=== PATIENT | male | born 1950 | race Caucasian/White ===

== ENCOUNTER 2017-06-10 07:31 | Outpatient (CLI) | payer MEDICARE, OTHER ==
[2014-10-17 15:15] VITALS: BP 112/56
[2017-06-10 08:07] LABS: BASOPHILS % 1.1 (0.0-1.5); EOSINOPHILS % 5.4 % (0.0-6.8); MEAN CORPUSCULAR HEMOGLOBIN 33.4 pg (28.0-34.0); MEAN CORPUSCULAR VOLUME 95.1 fl (80.0-100.0); MONOCYTES % 6.2 % (0.0-11.0); NEUTROPHILS # 4.4 # k/uL (1.4-7.7)
[2017-06-10 08:24] LABS: eGFR (African) > 60; eGFR (Non-African) > 60
== END 2017-06-10 07:32 ==
LOC: LAB 07:31
PROVIDERS: ATTEND Family Medicine
DX: E78.2 Mixed hyperlipidemia (principal); R53.83 Other fatigue
CPT/HCPCS: 36415; 80053; 80061; 84443; 85025

== ENCOUNTER 2018-04-11 12:30 | Emergency (ER) | payer MEDICARE, OTHER ==
[2018-04-11] MEDS ORDERED: KETOROLAC TROMETHAMINE 30 MG/1ML VIAL ONE (12:53)
[2018-04-11] MEDS ORDERED: 0.9 % SODIUM CHLORIDE 1,000 ML IV ONE (12:53)
[2018-04-11] MEDS ORDERED: KETOROLAC TROMETHAMINE 30 MG/1ML VIAL IVP ONE (12:58)
--- NOTE | 2018-04-11 12:58 | ED Physician Documentation ---
Flank Pain - HISTORIAN Historian: patient - HPI Stated Complaint: "might have a kidney stone" Chief Complaint: Flank Pain Onset: hours (2) Duration: constant Timing: worse Severity: moderate Quality: pain, sharp Associated Symptoms: none Exacerbated by: movements Relieved by: nothing Further Comments: yes (he states about 1 hour ago he started to have left lower back pain that was "hernan over the left lower belly and I thought i needed to have a bowel movement" He states he has since had two regular bowel movements but the pain has continued to increase and has moved to the left lower flank only. Denies any injury, no nausea or vomiting. No fever) - ROS CONST: no problems GI/: none CVS/RESP: none EYES/ENT: none MS/SKIN/LYMPH: none NEURO/PSYCH: none - SOCIAL HX Smoking History: non-smoker Alcohol Use: none Drug Use: none - FAMILY HX Family History: none - PAST HX Past History: kidney stones, other (prostate, HTN, GERD ) Surgeries/Procedures: other (prostate ) Immunizations: UTD Medications: see nurse note Allergies: NKDA - VITAL SIGNS Vital Signs: Vital Signs Temp Pulse Resp BP Pulse Ox 99.7 F H 75 18 187/96 97 04/11/18 12:34 04/11/18 12:34 04/11/18 12:34 04/11/18 12:34 04/11/18 12:34 - REVIEWED ASSESSMENTS Nursing Assessment Reviewed: Yes Vitals Reviewed: Yes Progress - Progress Progress: 1402: states pain "is starting to come back" 5-6 on 1/10 scale. DG 1418: Pain is improved to 2-3 on 1/10 scale. He states he would rather recover at home if he can have meds for pain. Denies any nausea. He and his are aware. Dr Romero's office was notified and the nurse will return a phone call to the spouse. DG ED Results Lab/Radiology - Radiology Radiology Impressions: CT abdomen and pelvis without contrast History: Left flank pain Technique: Helically acquired images were obtained through the abdomen and pelvis without contrast using a stone protocol. Findings: One or two tiny gallstones are present. There is a small hiatal hernia. On the nonenhanced images, the liver, spleen, pancreas and adrenal glands appear normal. There are stones of both kidneys. On the right, there are a total of 3 small 1 to 2 mm stones. There are no ureteral stones on the right. On the left, there are at least 6 calyceal stones. The largest of these measures 10 mm. There is mild left hydronephrosis and mild left hydroureter. There is a 4 mm stone at the left ureterovesicular junction. The bladder is decompressed. There has been a prostatectomy. Small and large bowel loops in the abdomen are normal in caliber. The abdominal aorta is normal in caliber. The appendix is normal. Impression: Bilateral nephrolithiasis as described. Tiny gallstones. Mild left hydronephrosis and left hydroureter with a 4 mm stone at the left ureterovesicular junction. Surgical clips are present in the pelvis consistent with a prostatectomy. Electronically signed on Apr 11, 2018 2:01:59 PM CDT by: Jo Ann Mccoy Abdominal Pain Physical Exam - Physical Exam General Appearance: alert, mild distress EENT: eye inspection normal, ENT inspection normal NECK: normal inspection RESPIRATORY: no resp distress, chest non-tender, breath sounds normal CVS: reg rate & rhythm, heart sounds normal, equal pulses, no murmur ABDOMEN: soft, normal bowel sounds, no distension, non-tender BACK: normal inspection, CVA tenderness (L) SKIN: warm/dry, diaphoresis EXTREMITIES: non-tender, normal range of motion, no edema NEURO: oriented X3, CN's nml as tested, motor nml, sensation nml, mood/affect nml, cognition normal Vital Signs: Vital Signs Temp Pulse Resp BP Pulse Ox 99.7 F H 75 18 187/96 97 04/11/18 12:34 04/11/18 12:34 04/11/18 12:34 04/11/18 12:34 04/11/18 12:34 Discharge Clincal Impression: Kidney stones Referrals: Joanne Ramirez MD [Primary Care Provider] - 2 Days Comments: 1. Increase fluids - No caffeine 2. Flomax 0.4 mg daily (he had todays dose 04.11.2018) 3. Torodol 10 every 6 hours as needed 4. Dr Romero will return call about follow up 5. Return to ER for any concerns he will also strain urine he is aware of this Condition: Stable Disposition: 01 HOME, SELF-CARE Decision to Admit: NO Date of Decison to Admit: 04/11/18 Decision Time: 14:28
[2018-04-11] MEDS ORDERED: 0.9 % SODIUM CHLORIDE 1,000 ML IV SCH (13:00)
[2018-04-11 13:07] LABS: BASOPHILS % 0.7 (0.0-1.5); EOSINOPHILS % 5.6 % (0.0-6.8); MEAN CORPUSCULAR HEMOGLOBIN 32.5 pg (28.0-34.0); MEAN CORPUSCULAR VOLUME 95.5 fl (80.0-100.0); MONOCYTES % 6.8 % (0.0-11.0); NEUTROPHILS # 3.9 # k/uL (1.4-7.7)
[2018-04-11 13:14] LABS: eGFR (African) > 60; eGFR (Non-African) 59
[2018-04-11] MEDS ORDERED: MORPHINE SULFATE 4 MG/ML PREFILLED SYR IVP ONE (14:00)
[2018-04-11] MEDS ORDERED: TAMSULOSIN HCL 0.4 MG CAP.ER.24H PO ONE (14:02)
[2018-04-11 14:33] LABS: APPEARANCE,URINE CLOUDY (CLEAR); COLOR,URINE AMBER (YELLOW); OCCULT BLOOD,URINE 3+ (NEGATIVE); PH URINE 5.5 (5.0 - 8.0); UROBILINOGEN URINE 0.2 Eu (0.2-1.0)
[2018-04-11 14:40] VITALS: BP 156/89
--- NOTE | 2018-04-11 19:02 | Diagnostic Imaging Report ---
YADI FORBES [facility] [id number] [facility] [address] [place], [place]. [address] Report Submission Date: Apr 11, 2018 2:01:59 PM CDT Patient Study Name: SRIKANTH PEREZ Date: Apr 11, 2018 1:13:55 PM CDT Modality Type: CT\SR Gender: M Description: CT ABD PELVIS W/O CO : 50 Institution: [facility] Physician: YADI FORBES CT abdomen and pelvis without contrast History: Left flank pain Technique: Helically acquired images were obtained through the abdomen and pelvis without contrast using a stone protocol. Findings: One or two tiny gallstones are present. There is a small hiatal hernia. On the nonenhanced images, the liver, spleen, pancreas and adrenal glands appear normal. There are stones of both kidneys. On the right, there are a total of 3 small 1 to 2 mm stones. There are no ureteral stones on the right. On the left, there are at least 6 calyceal stones. The largest of these measures 10 mm. There is mild left hydronephrosis and mild left hydroureter. There is a 4 mm stone at the left ureterovesicular junction. The bladder is decompressed. There has been a prostatectomy. Small and large bowel loops in the abdomen are normal in caliber. The abdominal aorta is normal in caliber. The appendix is normal. Impression: Bilateral nephrolithiasis as described. Tiny gallstones. Mild left hydronephrosis and left hydroureter with a 4 mm stone at the left ureterovesicular junction. Surgical clips are present in the pelvis consistent with a prostatectomy. Electronically signed on Apr 11, 2018 2:01:59 PM CDT by: Jo Ann PARK
== END 2018-04-11 14:39 | disposition home or self-care (01) ==
LOC: ED 12:30
DX: N20.0 Calculus of kidney (principal)
CPT/HCPCS: 74176; 80053; 81002; 85025; 93005; J1885; J2270; J7030; 96365; 96375; 99284; S1016

== ENCOUNTER 2018-10-02 07:43 | Outpatient (CLI) | payer MEDICARE, OTHER ==
[2018-10-02 08:57] LABS: eGFR (Non-African) > 60
== END 2018-10-02 07:48 | disposition home or self-care (01) ==
LOC: LAB 07:43
PROVIDERS: ATTEND Family Medicine
DX: E78.2 Mixed hyperlipidemia (principal)
CPT/HCPCS: 36415; 80053; 80061